=== PATIENT | male | born 1945 | race Caucasian/White ===

== ENCOUNTER 2022-09-16 12:24 | Emergency (ER) | payer OTHER ==
[~2022-09-16] VITALS: Ht 172.7 cm; Wt 86.2 kg
[~2022-09-16 12:24] MED LIST: 'TENORMIN50 MG PO; AMITRIPTYLINE50 MG PO; ANTIFUNGAL30 GM T; ASPIRIN ADULT L81 M1 PO; ATORVASTATIN CA40 M1 PO; CAPOTEN50 MG PO; CLINDAMYCIN HC300 MG PO; DONEPEZIL HYDRO10 M1 PO; GLYBURIDE5 MG PO; HYDR25T PO; HYDROCODONE BIT1 T11 PO; METFORMIN1000 MG PO; NAMENDA10 MG PO; PERPHENAZINE4 M1 PO; Peridex 473 ML473 ML PO; REFRESH OPTIVE1 EACH OP; TRIAMCINOLONE AC0.1% T; VIAGRA100 MG PO
[2022-09-16 12:42] LABS: BASO # 0.1 10*3/uL (0.0-0.1); BASO % 0.5 % (0.0-1.0); EOS # 0.1 10*3/uL (0.0-0.4); EOS % 0.7 % (1.0-4.0); HEMATOCRIT 48.5 % (42.0-52.0); LYMPH # 1.6 10*3/uL (1.3-4.4); LYMPH % 15.7 % (27.0-41.0); MEAN CELL VOLUME 87.9 fl (80.0-94.0); MEAN CORPUSCULAR HGB 29.2 pg (27.0-31.0); MEAN CORPUSCULAR HGB CONC 33.2 g/dl (33.0-37.0); MEAN PLATELET VOLUME 10.8 fl (9.6-12.3); MONO # 0.5 10*3/uL (0.1-1.0); MONO % 5.3 % (3.0-9.0); NEUT # 7.7 10*3/uL (2.3-7.9); NEUT % 77.5 % (47.0-73.0); PLATELET COUNT AUTOMATED 193 10*3/uL (130-400); RED BLOOD COUNT 5.52 10*6/uL (4.50-5.90); RED CELL DISTRI WIDTH 13.1 % (0-14.5); WHITE BLOOD COUNT 9.9 10*3/uL (4.8-10.8)
[2022-09-16 13:03] LABS: ALKALINE PHOSPHATASE 119 U/L (46-116); BUN 13 mg/dl (9-23); CHLORIDE 104 mmol/L (98-107); POTASSIUM 4.3 mmol/L (3.4-5.1); SGPT/ALT 20 U/L (10-49); TOTAL PROTEIN 8.8 gm/dL (6.0-8.0)
== END 2022-09-16 15:20 | disposition home or self-care (01) ==
LOC: ED 12:24
PROVIDERS: Emergency Medicine
DX: R07.9 Chest pain, unspecified (principal); Z79.899 Other long term (current) drug therapy; Z79.82 Long term (current) use of aspirin